=== PATIENT | male | born 1950 | race Caucasian/White ===

== ENCOUNTER 2017-02-08 01:06 | Inpatient (IN) | payer OTHER ==
[~2017-02-08] VITALS: Ht 172.7 cm; Wt 84.4 kg
[~2017-02-08 01:06] MED LIST: CYMBALTA60 M1 PO; EXCEDRIN EXTRA1 EACH PO; HUMALOG100 UNIT/2 SC; LANTUS SOL100 UNIT/1 SC; LISINOPRIL5 M1 PO
--- NOTE | 2017-02-08 10:28 | Admission Core Measures ---
Admission Meds I reviewed the following Meds: Current Medications Sig/Aroldo Start time Last Medication Dose Stop Time Status Admin Acetaminophen 975 MG ONCE 02/08 0000 NR (Tylenol) 02/08 2359 Cefazolin Sodium 2,000 MG ONCE 02/08 0000 NR (Kefzol-Ancef Inj) 02/08 2359 Duloxetine HCl 60 MG AT BEDTIME 02/08 2200 UNVr (Cymbalta) Lisinopril 5 MG DAILY 02/09 1000 UNVr (Prinivil) Oxycodone HCl 10 MG ONCE 02/08 0000 NR (Roxicodone) 02/08 2359 Acute Coronary Syndrome Inclusion Criteria ACS Diagnosis No Inpatient Core Measures LDL Reminder: If No, please order W/I first 24hr of stay Congestive Heart Failure Inclusion Criteria CHF Diagnosis No Cerebrovascular accident Inclusion Criteria CVA/TIA Diagnosis No Inpatient Core Measures Bedside Swallow Eval Reminder: If BSE failed, place ST order Antithrombotic Reminder: Order Antithrombotic Medication by end of day 2 Antithrombotic Reminder: Document Reason Antithrombotic Not ordered by end of day 2 AFIB/Flutter Reminder: If Present, add to problem list AFIB/Flutter Reminder: Order Anticoag Medication for pts with AFIB/Flutter Atherosclerosis Reminder: If Present, add to problem list LDL Reminder: If No, please order W/I first 24hr of stay PT Order Reminder: If No, please order Venous thromboembolism Inpatient Core Measures VTE Risk Factors: [facility] prophylaxis d/t No contraindications No VTE Pharm Prophylaxis d/t No contraindications Inclusion Criteria - Per Current guidelines, there needs to be overlap - treatment for the first 5 days of Warfarin therapy. - Parenteral Anticoagulation (IV or SC) needs to be - given along with Warfarin therapy. VTE Diagnosis No VTE Type NONE VTE Confirmed by (Test) NONE Problem List As ranked by this Provider includes Assessment & Plan 1. Primary osteoarthritis of left hip HOME MEDS Home Med List Aspirin/Acetaminophen/Caffeine (Excedrin Extra Strength Caplet) 250 MG-250 MG-65 MG TABLET 2 TAB PO DAILY ? (Reported) Duloxetine HCl (Cymbalta) 60 MG CAPSULE.DR 1 CAP PO QHS NEUROPATHY (Reported) Insulin Glargine,Hum.rec.anlog (Lantus Solostar) 100 UNIT/ML (3 ML) INSULN.PEN 32 UNIT SC QPM DM II (Reported) Insulin Lispro (Humalog) 100 UNIT/ML VIAL 2 UNITS SC TID DM II (Reported) Lisinopril 5 MG TABLET 1 TAB PO DAILY HTN (Reported)
[2017-02-08] MEDS ORDERED: MIRALAX17 G1 PO (13:52)
[2017-02-08] MEDS ORDERED: MS CONTIN15 M2 PO (13:52)
[2017-02-08] MEDS ORDERED: DILAUDID2 M1 PO (13:52)
[2017-02-08] MEDS ORDERED: ASPIRIN EC325 M2 PO (13:52)
[2017-02-08] MEDS ORDERED: COLACE100 M1 PO (13:52)
--- NOTE | 2017-02-08 13:56 | Patient Discharge Instructions ---
Discharge Instructions General Discharge Information You were seen/treated for: Left hip primary osteoarthritis You had these procedures: Left total hip arthroplasty Watch for these problems: Increasing pain despite the use of pain medication Increasing redness, warmth or swelling Drainage of any type from incision Inability to bear weight on operative leg Persistent nausea and vomiting Fever greater than 101.5 degrees Other wound care: Please keep wound clean and dry. No ointments or lotions of any type on or near incision at any time. No exceptions. Your dressing will be changed by your nurse on the second day after your surgery. Daily dry dressing changes are recommended each day thereafter. Do not soak your wound in a bath at any time until otherwise indicated by your surgeon. You may shower, please dry wound immediately after shower with a clean towel. Special Instructions: Aspirin: You are taking this medication to help prevent blood clot formation. Please take with food to protect your stomach lining. Take as directed. Constipation: Pain medication can cause constipation. It is recommended that you take Colace and miralax daily. You may discontinue this medication if you develop loose stool or diarrhea. If you wish to continue this medication, it is available over the counter. If you are unable to move your bowels or pass gas after several days, please contact your doctor. Diet Recommended Diet: Diabetic Activity Activity Limited to: Weight bear as tolerated Additional ACTIVITY Info: Use assistive devices as needed Acute Coronary Syndrome Inclusion Criteria At DC or during hospital stay patient has or had the following: ACS DIAGNOSIS No Discharge Core Measures Meds if any: Prescribed or Continued at Discharge Meds if any: NOT Prescribed or Continued at Discharge Congestive Heart Failure Inclusion Criteria At DC or during hospital stay patient has or had the following: CHF DIAGNOSIS No Discharge Core Measures Meds if any: Prescribed or Continued at Discharge Meds if any: NOT Prescribed or Continued at Discharge Cerebrovascular accident Inclusion Criteria At DC or during hospital stay patient has or had the following: CVA/TIA Diagnosis No Discharge Core Measures Meds if any: Prescribed or Continued at Discharge Meds if any: NOT Prescribed or Continued at Discharge Venous thromboembolism Inclusion Criteria VTE Diagnosis No VTE Type NONE VTE Confirmed by (Test) NONE Discharge Core Measures - Per Current guidelines, there needs to be overlap - treatment for the first 5 days of Warfarin therapy. - If discharged on Warfarin prior to 5 days of - overlap therapy, the patient will need to be - assessed for post discharge needs including - *Post discharge parental anticoagulation - *Warfarin and/or parental anticoagulation education - *Follow up date to check INR post discharge At least 5 days overlap therapy as Inpatient No Meds if any: Prescribed or Continued at Discharge Note: Overlap Therapy is Warfarin and Anticoagulant Meds if any: NOT Prescribed or Continued at Discharge
--- NOTE | 2017-02-08 13:58 | Surg Short-stay <48hrs Dis Sum ---
Visit Information Visit Dates Admission Date: 02/08/17 Discharge Date: 02/11/17 Surgical Short Stay DC Summary Admission Diagnosis: Left hip primary osteoarthritis Final Diagnosis: Same, status post left total hip arthroplasty Procedure(s): Left total hip arthroplasty Summary/Significant Findings: Patient was admitted to the hospital for an elective total joint replacement. The procedure was tolerated well and patient was transferred to a general surgical floor. Diet was advanced and tolerated, and the patient voided spontaneously. The patient was evaluated and treated by physical therapy. At the time of hospital discharge, the vital signs were stable, neurovascular status was intact, and pain was controlled with the use of oral pain medications. Condition at Discharge: Stable Discharge Disposition: home health services Discharge instructions provided to patient/family: Yes Post discharge follow-up plan: Follow up with Dr. Chiu in 6 weeks from date of surgery. Please call his office to arrange and/or confirm this appointment.
--- NOTE | 2017-02-08 17:56 | Operative Report ---
Operative/Inv Procedure Report Surgery Date: 02/08/17 Name of Procedure: Left total hip replacement Pre-Operative Diagnosis: Primary left hip DJD Post-Operative Diagnosis: Same Estimated Blood Loss: 300 Surgeon/Flat Knitter: DAKSHA LEON,MONICA Berry Anesthesia: block Operative/Procedure Note Note: Description of Procedure: The patient was taken to the operating room and positively identified. After induction of spinal anesthesia and administration of appropriate pre-operative antibiotics, the patient was positioned supine on the operating room table and all bony prominences were well padded. After performing a surgical timeout, the left lower extremity was prepped and draped in the usual sterile fashion. A direct anterior approach was made to the left hip. The incision was carried sharply through superficial soft tissues to the level of the fascia. Meticulous hemostasis was maintained with Bovie electocautery. The fascia over the tensor fascia kati muscle was opened sharply and the interval between the TFL and the sartorius was entered bluntly taking care to stay lateral to the lateral femoral cutaneous nerve. Retractors were placed around the femoral neck and the pericapsular fat was identified. The ascending branches of the lateral femoral circumflex vessels were identified and carefully coagulated. The pericapsular fat and anterior capsule were then resected. A napkin ring osteotomy was performed and the femoral head was removed without difficulty. Attention was then turned to the acetabulum. After appropriate placement of retractors, the acetabulum was exposed. Soft tissue was cleaned from the acetabular margin and notch. Overhanging osteophytes were removed and the teardrop was exposed. The acetabulum was then sequentially reamed to accept a 58 mm Jessie Trident Tritanium Hemispherical shell. This was impacted into place in the appropriate position and fitted with a 36 mm Trident X3 zero degree polyethylene insert. A screw was used for supplemental fixation. Attention was then turned to the femur. After performing the appropriate ligament releases, the proximal femur was exposed. It was then sequentially broached to accept a size 5 Sang Anato stem. This was trialed for leg length and stability. The trial component was removed and the final component was impacted into place. The trunnion was carefully cleaned and fit with a 36 mm, + 5 Biolox delta ceramic femoral head. The hip was reduced and put through a full range of motion and found to be stable. The articular space was then irrigated with sterile saline. The periarticular soft tissues were infilitrated with Marcaine. The fascial layer was closed with interrupted #1 vicryl suture and the skin was re-approximated with interrupted 2 -0 vicryl. The skin was closed with a running 3-0 V-Lock suture. Steri-strips and a sterile dressing were applied. The patient was awakened and taken to the recovery room in satisfactory condition.
--- NOTE | 2017-02-08 18:12 | RADIOLOGY REPORT ---
EXAMINATION: XR HIP, LEFT CLINICAL INFORMATION: Status post left total hip arthroplasty. COMPARISON: None TECHNIQUE: Two views of the left hip. FINDINGS: Cross-table lateral view is limited due to technique. There are postoperative changes of a left total hip arthroplasty with metallic acetabular, femoral head, and proximal femoral components without evidence of immediate complication. A single surgical drain identified in the anterior soft tissues along with soft tissue gas consistent with immediate postoperative status. IMPRESSION: Immediate postoperative findings as noted.
--- NOTE | 2017-02-08 20:32 | PN- Orthopedic ---
Subjective Subjective: POC Complaint of pain at the incision. No nausea, vomiting, chest pain, shortness of breath. Tolerating diet. No postop void yet. No postop out of bed. Objective Vital Signs and I&Os see emr Physical Exam: GEN: NAD CARD: S1S2 RRR PULM: CTAB EXT: Left hip dressing CDI, tender to palpation at incision, Hemovac drain in place with minimal sanguinous output, gross motor intact, intact dorsi and plantarflexion bilaterally, palpable pedal pulses, gross sensation intact, calves soft nt, ALPS on bl Assessment/Plan Assessment/Plan A: 66yoM POD #0 status post left SONG, with postoperative pain, otherwise stable. P: - DVT ppx: asa bid - Diabetic diet as tolerated - prn pain meds -Home meds - OOB, ambulate - abx 23 hours postop prophylaxis - am labs - Out of bed, WBAT, PT - will dw attending Core Measures/Miscellaneous Venous Thromboembolism VTE Risk Factors: Surgery VTE Contraindications: No Contraindications VTE Diagnosis: No VTE Type: NONE VTE Confirmed by (Test): NONE Beta Lalo Is Beta Lalo a Home Med? No Antibiotics Is Patient on Antibiotics? Yes If Yes: prophylaxis
[2017-02-08] MEDS ORDERED: LEVOTHYROXINE100 MC1 PO (20:35)
[2017-02-08] MEDS ORDERED: SYNTHROID100 MCG PO (20:36)
[2017-02-08 21:53] VITALS: BP 130/70
[2017-02-09 00:04] VITALS: BP 142/60
[2017-02-09 02:04] VITALS: BP 124/70
[2017-02-09 06:00] VITALS: BP 122/68
[2017-02-09 09:25] LABS: ABSOLUTE BASOPHIL COUNT 0 /CUMM (0.0-0.2); ABSOLUTE EOSINOPHIL COUNT 0.2 /CUMM (0.0-0.7); ABSOLUTE GRANULOCYTE CT 9.2 /CUMM (1.4-6.5); ABSOLUTE LYMPH COUNT 0.9 /CUMM (1.2-3.4); ABSOLUTE MONOCYTE COUNT 0.9 /CUMM (0.10-0.60); BASOPHIL % 0 % (0.0-2.0); EOSINOPHIL % 1.7 % (0-5); GRANULOCYTE % 82.9 % (42.2-75.2); HEMATOCRIT 30.6 % (42-52); MEAN CORPUSCULAR HGB 28.7 PG (27.0-31.0); MEAN CORPUSCULAR HGB CONC 33.3 G/DL (33.0-37.0); MEAN CORPUSCULAR VOLUME 86.2 FL (80.0-94.0); MEAN PLATELET VOLUME 9.9 FL (7.4-10.4); PLATELET COUNT 197 /CUMM (130-400); RBC DISTRIBUTION WIDTH 15.3 % (11.5-14.5); RED BLOOD CELL CT 3.55 /CUMM (4.70-6.10); WHITE BLOOD CELL COUNT 11.1 /CUMM (4.8-10.8)
--- NOTE | 2017-02-09 09:42 | PN- Orthopedic ---
Subjective Subjective: Reports pain uncontrolled. Tolerating diet. No nausea. Denies dizziness. No shortness of breath. No chest pains. Reports voiding without difficulty. Objective Vital Signs and I&Os Vital Signs Date Time Temp Pulse Resp B/P B/P Pulse O2 O2 Flow FiO2 Mean Ox Delivery Rate 02/09 06 97.7 71 18 122/68 98 Room Air 02/09 0204 98.1 82 18 124/70 98 Room Air 02/09 0004 98.1 86 18 142/60 91 Room Air 02/08 2153 98.6 86 18 130/70 99 Intake & Output 02/09 1600 02/09 0800 02/09 0000 02/08 1600 02/08 0800 02/08 0000 Intake Total 840 650 Output Total 400 790 540 Balance -400 50 110 Intake, IV 600 300 Intake, Oral 240 350 Output, 40 140 Drainage Output, Urine 400 750 400 Patient 186 lb Weight Weight Reported by Patient Measurement Method Physical Exam: General - alert & oriented. uncomfortable. no acute distress. Lungs - clear bilaterally. no w/r/r. Cardiac - s1s2. reg. Abdomen - soft. nontender. Extremities - warm bilaterally. no c/c/e. hemovac drain with bloody drainage. left hip dressing c/d/i. no hematoma. nvi. calves soft and nontender b/l. Current Medications: Current Medications Sig/Aroldo Start time Last Medication Dose Route Stop Time Status Admin Acetaminophen 1,000 MG Q6H 02/09 0945 UNVr N/A 1 UNIT IV 02/10 0359 Acetaminophen 650 MG Q4P PRN 02/08 1930 AC PO Acetaminophen 0 .STK-MED ONE 02/08 1414 DC PO Acetaminophen 975 MG ONCE 02/08 0000 DC PO 02/08 2359 Aspirin 325 MG BID 02/080 AC 02/09 PO 0853 Cefazolin Sodium 2 GM Q8H 02/08 2100 DC 02/09 N/A 1 UNIT IV 02/09 0529 0606 Cefazolin Sodium 2,000 MG ONCE 02/08 0000 DC IV 02/08 2359 Dextrose/Sodium 1,000 ML .[id number] 02/08 1930 DC 02/09 Chloride IV 0409 Docusate Sodium 100 MG BID 02/08 2200 AC 02/09 PO 0853 Duloxetine HCl 60 MG AT BEDTIME 07/24 2200 DC PO Duloxetine HCl 60 MG AT BEDTIME 02/08 2200 AC 02/08 PO 2202 Ephedrine 200 MG .STK-MED ONE 02/08 1410 DC IM 02/08 1411 Fentanyl Citrate 100 MCG .STK-MED ONE 02/08 1408 DC IM 02/08 1409 Hydromorphone HCl 2 MG Q4P PRN 02/08 1930 AC PO Hydromorphone HCl 4 MG Q4P PRN 02/08 1930 AC 02/09 PO 0607 Hydromorphone HCl 2 MG .STK-MED ONE 02/08 1801 DC IM 02/08 1802 Hydromorphone HCl 2 MG .STK-MED ONE 02/08 1724 DC IM 02/08 1725 Insulin Aspart 0 TIDAC 02/08 1200 AC 02/09 SC 0904 Insulin Detemir 20 UNITS AT BEDTIME 02/08 2200 AC 02/08 SC 2202 Ketorolac 15 MG Q6 PRN 02/09 0944 UNVr Tromethamine IV Ketorolac 15 MG Q8P PRN 02/08 1930 DC 02/09 Tromethamine IV 02/11 1930 0853 Levothyroxine Sodium 0.1 MG DAILY AC 02/09 0700 AC 02/09 PO 0606 Lisinopril 5 MG DAILY 02/09 1000 DC PO Lisinopril 5 MG DAILY 02/09 1000 AC 02/09 PO 0900 Meperidine HCl 50 MG .STK-MED ONE 02/08 1715 DC IM 02/08 1716 Midazolam HCl 4 MG .STK-MED ONE 02/08 1409 DC IM 02/08 1410 Morphine Sulfate 15 MG BID 02/09 1000 UNVr PO Morphine Sulfate 2 MG Q2P PRN 02/08 1930 AC 02/09 IV 0223 Omeprazole 20 MG DAILY AC 02/09 0700 AC 02/09 PO 0606 Ondansetron HCl 4 MG Q6P PRN 02/08 1930 AC IV Oxycodone HCl 0 .STK-MED ONE 02/08 1414 DC PO Oxycodone HCl 10 MG ONCE 02/08 0000 DC PO 02/08 2359 Polyethylene Glycol 17 GM DAILY 02/09 1000 AC 02/09 PO 0854 Promethazine HCl 12.5 MG Q6P PRN 02/08 1930 AC IV 02/15 1314 Tranexamic Acid 3,000 MG .STK-MED ONE 02/08 1409 DC IV 02/08 1410 Results Last 48 Hours of Labs: Laboratory Tests 02/09 0636 Chemistry Sodium (137 - 145 mmol/L) 135 L Potassium (3.5 - 5.1 mmol/L) 5.1 Chloride (98 - 107 mmol/L) 101 Carbon Dioxide (22 - 30 mmol/L) 24 Anion Gap (5 - 16) 10 BUN (9 - 20 mg/dL) 43 H Creatinine (0.7 - 1.2 mg/dL) 2.2 H Estimated GFR (>60 ml/min) 30 L BUN/Creatinine Ratio (7 - 25 %) 19.5 Hematology CBC w Diff Pending WBC Pending RBC Pending Hgb Pending Hct Pending MCV Pending MCH Pending RDW Pending Plt Count Pending MPV Pending PUBS MCHC Pending Assessment/Plan Assessment/Plan This 66 year old male with htn, htn, neuropathy, and hypothyroidism is POD#1 s/p left total hip replacement for primary left hip DJD tolerating diet. d/c iv fluids hemovac drain removed add ms contin 15 bid. toradol around the clock. add iv tylenol. continue PT. f/u recommendations accuchecks / ss coverage home meds ordered asa bid - dvt ppx dressing change POD#2 will d/w Core Measures/Miscellaneous Venous Thromboembolism VTE Risk Factors: Surgery VTE Contraindications: No Contraindications VTE Diagnosis: No VTE Type: NONE VTE Confirmed by (Test): NONE Beta Lalo Is Beta Lalo a Home Med? No Antibiotics Is Patient on Antibiotics? Yes If Yes: prophylaxis
[2017-02-09 10:48] VITALS: BP 118/80
[2017-02-09 13:48] VITALS: BP 126/60
--- NOTE | 2017-02-09 16:45 | NUR ---
L HIP DRESSING- GAUZE SATURATED AND BLOOD POOLING UNDERNEATH TRANSPARENT DRESSING. SURGICAL PA VICKIE NOTIIED. WILL USE DRY GAUZE WITH TEGADERM FOR DRESSING CHANGE PER SURGICAL AKBAR JOHNSTON.
[2017-02-09 21:58] VITALS: BP 110/60
[2017-02-10 06:00] VITALS: BP 108/64
--- NOTE | 2017-02-10 07:26 | PN- Orthopedic ---
Subjective Subjective: some pain L hip with movement. no other complaints. Objective Vital Signs and I&Os Vital Signs Date Time Temp Pulse Resp B/P B/P Pulse O2 O2 Flow FiO2 Mean Ox Delivery Rate 02/10 0600 98.3 85 20 108/64 100 Room Air 02/09 2158 98.2 97 20 110/60 97 02/09 1414 Room Air 02/09 1348 97.8 66 18 126/60 100 Room Air 02/09 1048 98.1 77 20 118/80 98 Room Air Intake & Output 02/10 0802/10 0000 02/09 1600 02/09 0800 02/09 0000 02/08 1600 Intake Total 560 840 650 Output Total 800 790 540 Balance 560 -800 50 110 Intake, IV 280 600 300 Intake, Oral 280 240 350 Output, 40 140 Drainage Output, Urine 800 750 400 Patient 186 lb Weight Weight Reported by Patient Measurement Method Physical Exam: GEN: nad, in chair CAR: s1s2 RRR PULM: CTAB AB: sof n EXT: L hip dressing CDI (changed yest), +mild eccymoses, calves soft nt bl, + pedal pulses, +dorsi/plantar flexion. Results Last 48 Hours of Labs: Laboratory Tests 02/09 0636 Chemistry Sodium (137 - 145 mmol/L) 135 L Potassium (3.5 - 5.1 mmol/L) 5.1 Chloride (98 - 107 mmol/L) 101 Carbon Dioxide (22 - 30 mmol/L) 24 Anion Gap (5 - 16) 10 BUN (9 - 20 mg/dL) 43 H Creatinine (0.7 - 1.2 mg/dL) 2.2 H Estimated GFR (>60 ml/min) 30 L BUN/Creatinine Ratio (7 - 25 %) 19.5 Hematology CBC w Diff NO MAN DIFF REQ WBC (4.8 - 10.8 /CUMM) 11.1 H RBC (4.70 - 6.10 /CUMM) 3.55 L Hgb (14.0 - 18.0 G/DL) 10.2 L Hct (42 - 52 %) 30.6 L MCV (80.0 - 94.0 FL) 86.2 MCH (27.0 - 31.0 PG) 28.7 RDW (11.5 - 14.5 %) 15.3 H Plt Count (130 - 400 /CUMM) 197 MPV (7.4 - 10.4 FL) 9.9 Gran % (42.2 - 75.2 %) 82.9 H Lymphocytes % (20.5 - 51.1 %) 7.6 L Monocytes % (1.7 - 9.3 %) 7.8 Eosinophils % (0 - 5 %) 1.7 Basophils % (0.0 - 2.0 %) 0 L Absolute Granulocytes (1.4 - 6.5 /CUMM) 9.2 H Absolute Lymphocytes (1.2 - 3.4 /CUMM) 0.9 L Absolute Monocytes (0.10 - 0.60 /CUMM) 0.9 H Absolute Eosinophils (0.0 - 0.7 /CUMM) 0.2 Absolute Basophils (0.0 - 0.2 /CUMM) 0 PUBS MCHC (33.0 - 37.0 G/DL) 33.3 Cr 2.2 yest, pending today, ?baseline 2.5 FS: 114/93/163 (last 3 checks) Assessment/Plan Assessment/Plan POD2 sp L SONG, with LILIAM vs. CRI, postop pain, stable. P: fu labs- Cr 2.2 yesterday, ?baseline 2.5, toradol dc'ed yesterday prn pain meds ada diet, dm meds oob, wbat, pt dc planning will dw Core Measures/Miscellaneous Venous Thromboembolism VTE Risk Factors: Surgery VTE Contraindications: No Contraindications VTE Diagnosis: No VTE Type: NONE VTE Confirmed by (Test): NONE Beta Lalo Is Beta Lalo a Home Med? No Antibiotics Is Patient on Antibiotics? Yes If Yes: prophylaxis
[2017-02-10 08:28] LABS: ABSOLUTE BASOPHIL COUNT 0 /CUMM (0.0-0.2); ABSOLUTE EOSINOPHIL COUNT 2.2 /CUMM (0.0-0.7); ABSOLUTE GRANULOCYTE CT 7.3 /CUMM (1.4-6.5); ABSOLUTE LYMPH COUNT 0.8 /CUMM (1.2-3.4); BASOPHIL % 0.2 % (0.0-2.0); GRANULOCYTE % 64.5 % (42.2-75.2); HEMATOCRIT 29.9 % (42-52); MEAN CORPUSCULAR HGB 28.8 PG (27.0-31.0); MEAN CORPUSCULAR HGB CONC 33.7 G/DL (33.0-37.0); MEAN CORPUSCULAR VOLUME 85.6 FL (80.0-94.0); MEAN PLATELET VOLUME 9.9 FL (7.4-10.4); PLATELET COUNT 201 /CUMM (130-400); RBC DISTRIBUTION WIDTH 15.6 % (11.5-14.5); RED BLOOD CELL CT 3.49 /CUMM (4.70-6.10); WHITE BLOOD CELL COUNT 11.4 /CUMM (4.8-10.8)
[2017-02-10 08:59] LABS: EOSINOPHIL % 19.3 % (0-5)
[2017-02-10 14:15] VITALS: BP 142/82
[2017-02-10 22:19] VITALS: BP 100/60
[2017-02-11 06:45] VITALS: BP 120/60
--- NOTE | 2017-02-11 09:40 | PN- Orthopedic ---
Subjective Subjective: Patient still complains of severe left hip pain. No fever or flulike illness. He expressed some anxiety about being discharged home. Objective Vital Signs and I&Os Vital Signs Date Time Temp Pulse Resp B/P B/P Pulse O2 O2 Flow FiO2 Mean Ox Delivery Rate 02/11 0918 98.3 76 20 120/60 02/11 0645 98.3 76 20 120/60 90 Room Air 02/10 2219 98.4 84 20 100/60 90 Room Air 02/10 1415 97.6 77 20 142/82 98 Room Air 02/10 0946 98.3 85 20 108/64 Intake & Output 02/11 1600 02/11 0800 02/11 0000 02/10 1600 02/10 0800 02/10 0000 Intake Total 860 1355 1125 220 560 Output Total 006 941 7840 400 Balance -115 405 125 -180 560 Intake, IV 620 875 625 120 280 Intake, Oral 240 480 500 100 280 Number 0 0 0 Bowel Movements Output, Urine 602 540 0786 400 Physical Exam: Well-developed well-nourished no apparent distress. HEENT: Atraumatic, extraocular motion intact Neck: Supple, no lymphadenopathy Respiratory: No respiratory distress Extremities: No edema left lower extremity hip dressing in place, Dressing clean dry and intact Mild thigh edema No signs of infection. No shortening or rotation Hip range of motion is limited and without unexpected pain Neurovascularly intact distally Bilateral calves are supple, nontender. Neuro: Alert and oriented x3 Psych: Mood affect normal, normal memory normal judgment. Skin: Warm and dry, no rash on exposed skin Results Last 48 Hours of Labs: Laboratory Tests 02/11 02/10 0628 0634 Chemistry Sodium (137 - 145 mmol/L) 137 135 L Potassium (3.5 - 5.1 mmol/L) 4.6 5.1 Chloride (98 - 107 mmol/L) 106 103 Carbon Dioxide (22 - 30 mmol/L) 21 L 23 Anion Gap (5 - 16) 10 9 BUN (9 - 20 mg/dL) 44 H 50 H Creatinine (0.7 - 1.2 mg/dL) 2.1 H 2.6 H Estimated GFR (>60 ml/min) 32 L 25 L BUN/Creatinine Ratio (7 - 25 %) 21.0 19.2 Hematology CBC w Diff NO MAN DIFF REQ WBC (4.8 - 10.8 /CUMM) 11.4 H RBC (4.70 - 6.10 /CUMM) 3.49 L Hgb (14.0 - 18.0 G/DL) 10.1 L Hct (42 - 52 %) 29.9 L MCV (80.0 - 94.0 FL) 85.6 MCH (27.0 - 31.0 PG) 28.8 RDW (11.5 - 14.5 %) 15.6 H Plt Count (130 - 400 /CUMM) 201 MPV (7.4 - 10.4 FL) 9.9 Gran % (42.2 - 75.2 %) 64.5 Lymphocytes % (20.5 - 51.1 %) 7.3 L Monocytes % (1.7 - 9.3 %) 8.7 Eosinophils % (0 - 5 %) 19.3 H Basophils % (0.0 - 2.0 %) 0.2 Absolute Granulocytes (1.4 - 6.5 /CUMM) 7.3 H Absolute Lymphocytes (1.2 - 3.4 /CUMM) 0.8 L Absolute Monocytes (0.10 - 0.60 /CUMM) 1.0 H Absolute Eosinophils (0.0 - 0.7 /CUMM) 2.2 Absolute Basophils (0.0 - 0.2 /CUMM) 0 PUBS MCHC (33.0 - 37.0 G/DL) 33.7 Assessment/Plan Assessment/Plan Postop day #3 status post left total hip arthroplasty anterior approach. Patient still with complaints of moderate to severe pain, will increase MS Contin from 15 mg and 30 mg by mouth twice a day starting now. He expressed anxiety about being discharged home, will have him work with physical therapy again to increase his confidence His creatinine has improved, DC IV fluids Regular diet asa for DVT prophylaxsis Hopefully will discharge him home later today Core Measures/Miscellaneous Venous Thromboembolism VTE Risk Factors: Surgery VTE Contraindications: No Contraindications VTE Diagnosis: No VTE Type: NONE VTE Confirmed by (Test): NONE Beta Lalo Is Beta Lalo a Home Med? No Antibiotics Is Patient on Antibiotics? Yes If Yes: prophylaxis
[2017-02-11] MEDS ORDERED: MS CONTIN30 M1 PO (09:43)
[2017-02-11 14:01] VITALS: BP 140/70
[2017-02-11] MEDS ORDERED: DILAUDID2 M1 PO (20:25)
[2017-02-11] MEDS ORDERED: MS CONTIN15 M2 PO (20:25)
[2017-02-11 22:19] VITALS: BP 120/60
[2017-02-11] MEDS ORDERED: OXYCODONE HCL5 M1 PO (22:23)
== END 2017-02-11 22:30 | disposition home health service (06) | DRG 470 ==
LOC: SDA 01:06 → ENRESERV 17:40 → ENTRNSPT 18:46 → CMPTRNSPT 19:05 → 2NA 19:20 → ENPENDDIS 02-11 12:47 → 2NA 02-11 22:30
PROVIDERS: Physician Assistant; Physician Assistant Surgical; ADMIT Orthopaedic Surgery
PROC: 0SRB04A Replacement of Left Hip Joint with Ceramic on Polyethylene Synthetic Substitute, Uncemented, Open Approach (ICD-10-PCS; principal; 2017-02-08)
DX: M16.12 Unilateral primary osteoarthritis, left hip (principal); G62.9 Polyneuropathy, unspecified; I10 Essential (primary) hypertension; M25.752 Osteophyte, left hip; E03.9 Hypothyroidism, unspecified
CPT/HCPCS: 2NASP; 36415; 73502-LT; 82436; 88304; 97110-GO; 97116-GO; 97161-GP; 97530-GO; J0131; J0690; J0735; J2405; J2550; J7042